=== PATIENT | male | born 1980 | race Two or more races ===

== ENCOUNTER 2018-11-05 22:20 | Emergency (ER) | payer MEDICAID ==
[~2018-11-05] VITALS: Ht 172.7 cm; Wt 102.5 kg
--- NOTE | 2018-11-05 22:48 | NUR ---
Pt bib family via ambulance for an episode of syncope at home. Pt is A. O/4, breathing spontaneously to RA without difficulty. Pt came in with HL g18 on lac, flushes well. Labs drawn.
--- NOTE | 2018-11-05 22:55 | NUR ---
Pt taken to Radiology for CT head
[2018-11-05] MEDS ORDERED: IV NS 0.9% 500 ML BAG IV ONE (23:00)
--- NOTE | 2018-11-05 23:00 | NUR ---
ADDENDUM: Intravenous End Time Documentation: Normal saline 500 cc (IV-WO): start time:2300 PM ; end time:2400 : IV site: LAC #18 Port # 1
[2018-11-05 23:17] LABS: BASOPHILS # (AUTO) 0.1 /CMM (0.0-0.2); BASOPHILS % (AUTO) 0.8 % (0.0-2.0); EOSINOPHILS % (AUTO) 1.9 % (0.0-6.0); HEMATOCRIT 49 % (39-51); HEMOGLOBIN 16.9 g/dL (13.5-17.5); LYMPHOCYTES # (AUTO) 3.2 /CMM (0.8-4.8); LYMPHOCYTES % (AUTO) 34.7 % (20.0-44.0); MEAN CORPUSCULAR HGB CONC 35 g/dl (31.0-36.0); MEAN CORPUSCULAR VOLUME 92 fL (80-96); MONOCYTES # (AUTO) 0.6 /CMM (0.1-1.30); MONOCYTES % (AUTO) 6.7 % (2.0-12.0); NEUTROPHILS # (AUTO) 5.2 /CMM (1.8-8.9); NEUTROPHILS % (AUTO) 55.9 % (43.0-81.0); PLATELET COUNT (AUTO) 241 /CMM (150-450); RED BLOOD CELL COUNT(AUTO) 5.28 MIL/uL (4.5-6.0); WHITE BLOOD COUNT (AUTO) 9.3 K/uL (4.3-11.0)
[2018-11-05 23:26] LABS: CALCIUM, SERUM 8.3 mg/dL (8.5-10.1); CARBON DIOXIDE 22 mmol/L (21-32); CHLORIDE 103 mmol/L (98-107); CREATININE 0.9 mg/dL (0.6-1.3); GLUCOSE 197 mg/dL (74-106); POTASSIUM 3.7 mmol/L (3.5-5.1); SODIUM SERUM 138 mmol/L (136-145); UREA NITROGEN, BLOOD 17 mg/dL (7-18)
[2018-11-05 23:32] LABS: ALBUMIN 3.4 g/dL (3.4-5.0); ALKALINE PHOSPHATASE 115 U/L (46-116); BILIRUBIN,TOTAL 0.5 mg/dL (0.2-1.0)
[2018-11-05] MEDS ORDERED: KETOROLAC TROMETHAMINE INJ 30 MG/ML VIAL ONE (23:42)
[2018-11-05 23:51] LABS: ALANINE AMINOTRANSFERASE 112 U/L (12-78); ASPARTATE AMINOTRANSFERASE 50 U/L (15-37)
[2018-11-05 23:52] LABS: TOTAL PROTEIN, SERUM 7.1 g/dL (6.4-8.2)
[2018-11-06] MEDS ORDERED: KETOROLAC TROMETHAMINE INJ 30 MG/ML VIAL IV ONE
--- NOTE | 2018-11-06 00:15 | NUR ---
pt speaks Persian only, states he feels much better, wants to go home , daughter hu translates at [facility]
[2018-11-06 00:27] VITALS: BP 125/75
== END 2018-11-06 00:36 | disposition home or self-care (01) ==
LOC: ER 22:34
DX: R55 Syncope and collapse (principal); R42 Dizziness and giddiness; R07.81 Pleurodynia; R51 Headache; Z90.49 Acquired absence of other specified parts of digestive tract; Z87.19 Personal history of other diseases of the digestive system
CPT/HCPCS: 36415; 70450; 71045; 80048; 80076; 82962 ×2; 84484; 85025; 85730; 93005; 96361; 96374; 99284; A4606; J1885; J7040; Z7610